=== PATIENT | female | born 1975 | race Hispanic/Latino ===

== ENCOUNTER 2018-07-24 18:08 | Emergency (ER) | payer SELFPAY | END 2018-07-24 19:28 | disposition home or self-care (01) | LOC: EDH 18:08 | DX: B02.9 Zoster without complications (principal); Z90.49 Acquired absence of other specified parts of digestive tract; Z98.890 Other specified postprocedural states; Z72.0 Tobacco use | CPT/HCPCS: 99282 ==

== ENCOUNTER 2018-10-31 14:30 | Emergency (ER) | payer SELFPAY ==
[2018-10-31 14:49] LABS: BASOPHILS % (AUTO) 0.5 % (0.0-5.0); EOSINOPHILS % (AUTO) 0.4 % (0.0-8.0); HEMATOCRIT 38.4 % (36-48); LYMPHOCYTES % (AUTO) 26.9 % (21.0-51.0); MEAN CORPUSCULAR HEMOGLOBIN 28.4 pg (27.0-33.0); MEAN CORPUSCULAR HGB CONC 32.5 g/dL (32.0-36.0); MEAN CORPUSCULAR VOLUME 87.3 fL (79-99); MONOCYTES % (AUTO) 5.6 % (3.0-13.0); NEUTROPHILS % (AUTO) 66.6 % (40.0-77.0); PLATELET COUNT (AUTO) 244 K/uL (130-400); WHITE BLOOD COUNT (AUTO) 8.7 K/uL (4.8-10.8)
[2018-10-31] MEDS ORDERED: SODIUM CHLORIDE 0.9% 1000ML 1,000 ML IV ONE (14:49)
[2018-10-31] MEDS ORDERED: ONDANSETRON HCL 4 MG/2 ML VIAL ONE (14:49)
[2018-10-31] MEDS ORDERED: KETOROLAC TROMETHAMINE 30MG/ML ONE (14:56)
[2018-10-31 15:10] LABS: CREATININE 0.7 mg/dL (0.5-1.5); POTASSIUM 4.3 mmol/L (3.5-5.1)
[2018-10-31 15:15] LABS: ALBUMIN 3.8 g/dL (3.5-5.0); BILIRUBIN,TOTAL 0.4 mg/dL (0.2-1.0); TOTAL PROTEIN, SERUM 8.1 g/dL (6.0-8.3)
[2018-10-31 15:20] LABS: BILIRUBIN,URINE Negative (NEGATIVE); COLOR,URINE Yellow (YELLOW); GLUCOSE, URINE (UA) Negative (NEGATIVE); KETONES,URINE Negative (NEGATIVE); LEUKOCYTE ESTERASE ,URINE Negative (NEGATIVE); NITRATE,URINE Negative (NEGATIVE); OCCULT BLOOD,URINE Negative (NEGATIVE); PROTEIN,URINE Negative (NEGATIVE); UROBILINOGEN,URINE 0.2 mg/dL (0.2-1.0)
[2018-10-31 15:21] LABS: APPEARANCE,URINE Clear (CLEAR)
[2018-10-31 15:23] LABS: HCG,QUAL RESULT NEGATIVE (NEGATIVE)
== END 2018-10-31 16:47 | disposition home or self-care (01) ==
LOC: EDH 14:30
DX: R10.9 Unspecified abdominal pain (principal); R11.0 Nausea; F12.10 Cannabis abuse, uncomplicated; Z90.49 Acquired absence of other specified parts of digestive tract; Z72.0 Tobacco use
CPT/HCPCS: 36415; 74177; 80053; 81003; 81025; 85025; 96361; 96374; 96375; 99284; J1885; J2405; J7030

== ENCOUNTER 2020-12-08 09:01 | Emergency (ER) | payer SELFPAY ==
[2020-12-08] MEDS ORDERED: KETOROLAC TROMETHAMINE 30MG/ML ONE (09:43)
[2020-12-08] MEDS ORDERED: SODIUM CHLORIDE 0.9% 1000ML 1,000 ML IV ONE (09:44)
[2020-12-08 09:46] LABS: BASOPHILS % (AUTO) 0.4 % (0.0-5.0); HEMATOCRIT 40.9 % (36-48); LYMPHOCYTES % (AUTO) 26.9 % (21.0-51.0); MEAN CORPUSCULAR HEMOGLOBIN 28.1 pg (27.0-33.0); MEAN CORPUSCULAR HGB CONC 32.3 g/dL (32.0-36.0); MONOCYTES % (AUTO) 6.6 % (3.0-13.0); NEUTROPHILS % (AUTO) 64.8 % (40.0-77.0); PLATELET COUNT (AUTO) 257 K/uL (130-400); RED CELL DISTRIBUTION WIDTH 14.6 % (11.0-15.5); WHITE BLOOD COUNT (AUTO) 7.3 K/uL (4.8-10.8)
[2020-12-08 09:52] LABS: CREATININE 0.8 mg/dL (0.5-1.5); POTASSIUM 4.3 mmol/L (3.5-5.1)
[2020-12-08 09:55] LABS: APPEARANCE,URINE Clear (CLEAR); BILIRUBIN,URINE Negative (NEGATIVE); COLOR,URINE Yellow (YELLOW); GLUCOSE, URINE (UA) Negative (NEGATIVE); INR 0.99 (0.85-1.15); KETONES,URINE Negative (NEGATIVE); LEUKOCYTE ESTERASE ,URINE Negative (NEGATIVE); NITRATE,URINE Negative (NEGATIVE); OCCULT BLOOD,URINE Moderate (NEGATIVE); PH,URINE 5.5 (5.0-8.0); PROTEIN,URINE Negative (NEGATIVE); PROTHROMBIN TIME 10.8 SEC (9.6-11.6); UROBILINOGEN,URINE 0.2 mg/dL (0.2-1.0)
[2020-12-08 09:56] LABS: PARTIAL THROMBOPLASTIN TIME 29.3 SEC (26.3-35.5)
[2020-12-08 09:57] LABS: ALBUMIN 3.8 g/dL (3.5-5.0); BILIRUBIN,TOTAL 0.3 mg/dL (0.2-1.0); TOTAL PROTEIN, SERUM 8.3 g/dL (6.0-8.3)
[2020-12-08 10:09] LABS: WBC,URINE None Seen /HPF (0-1)
[2020-12-08 10:10] LABS: BACTERIA,URINE Rare /HPF (None Seen)
[2020-12-08] MEDS ORDERED: IOHEXOL-350 75 ML VIAL IV ONE (10:15)
[2020-12-08] MEDS ORDERED: HYDROCODONE/ACETAMINOPHEN 5/325 MG TAB ONE (11:38)
== END 2020-12-08 14:37 | disposition home or self-care (01) ==
LOC: EDH 09:01
DX: R10.30 Lower abdominal pain, unspecified (principal); D25.9 Leiomyoma of uterus, unspecified; K57.30 Diverticulosis of large intestine without perforation or abscess without bleeding; Z90.49 Acquired absence of other specified parts of digestive tract; Z98.890 Other specified postprocedural states; Z72.0 Tobacco use
CPT/HCPCS: 36415; 74177; 80053; 81001; 81025; 83690; 85025; 85610; 85730; 96361; 96374; 99285; J1885; J7030; Q9967

== ENCOUNTER 2024-10-04 12:00 | Emergency (ER) | payer BC ==
[~2024-10-04] VITALS: Ht 144.8 cm; Wt 65.8 kg
--- NOTE | 2024-10-04 12:08 | NUR ---
SEEN BY MINDY LI AT TRIAGE ROOM
[2024-10-04] MEDS: ketOROlac 15MG/ML VIAL (15MG/ML) IV ONE (12:18)
[2024-10-04 12:45] LABS: BASOPHILS # (AUTO) 0.04 K/uL (0.00-0.20); BASOPHILS % (AUTO) 0.4 % (0.0-5.0); EOSINOPHILS # (AUTO) 0.06 K/uL (0.00-0.70); EOSINOPHILS % (AUTO) 0.7 % (0.0-8.0); HEMATOCRIT 43.9 % (36-48); IMMATURE GRANULOCYTE ABSOLUTE 0.02 K/uL (0-1); LYMPHOCYTES # (AUTO) 2.6 K/uL (1.0-4.8); LYMPHOCYTES % (AUTO) 28.4 % (21.0-51.0); MEAN CORPUSCULAR HEMOGLOBIN 29.5 pg (27.0-33.0); MEAN CORPUSCULAR HGB CONC 32.6 g/dL (32.0-36.0); MEAN CORPUSCULAR VOLUME 90.5 fL (79-99); MONOCYTES # (AUTO) 0.7 K/uL (0.1-1.0); MONOCYTES % (AUTO) 7.5 % (3.0-13.0); NEUTROPHILS # (AUTO) 5.7 K/uL (1.8-7.7); NEUTROPHILS % (AUTO) 62.8 % (40.0-77.0); PLATELET COUNT (AUTO) 257 K/uL (130-400); RED BLOOD CELL COUNT(AUTO) 4.85 MIL/uL (4.00-5.50); RED CELL DISTRIBUTION WIDTH 15.1 % (11.0-15.5)
[2024-10-04 12:52] LABS: CREATININE 0.7 mg/dL (0.5-1.0); POTASSIUM 4.2 mmol/L (3.5-5.1)
[2024-10-04 13:01] LABS: APPEARANCE,URINE CLEAR (CLEAR); BILIRUBIN,URINE NEGATIVE (NEGATIVE); COLOR,URINE LIGHT-YELLOW (YELLOW); GLUCOSE, URINE (UA) NEGATIVE (NEGATIVE); KETONES,URINE NEGATIVE (NEGATIVE); LEUKOCYTE ESTERASE ,URINE NEGATIVE Leu/uL (NEGATIVE); NITRATE,URINE NEGATIVE (NEGATIVE); OCCULT BLOOD,URINE LARGE (NEGATIVE); PROTEIN,URINE NEGATIVE (NEGATIVE); UROBILINOGEN,URINE 0.2 mg/dL (0.2-1.0)
[2024-10-04 13:08] LABS: ADD UA MICROSCOPIC YES
[2024-10-04 13:13] LABS: SQUAMOUS EPITHELIAL CELL,UR RARE /HPF (0-2); WBC,URINE 0-1 /HPF (0-1)
--- NOTE | 2024-10-04 14:16 | HMCIMG ---
US PELVIC NON-OB LIMITED HISTORY: Fibroid COMPARISON: None TECHNIQUE: Transabdominal pelvic ultrasound study was performed. FINDINGS: The uterus measures 10 x 4.9 x 5.5 cm. The right ovary measures 2 x 1.3 x 1.7 cm. The left ovary measures 4.2 x 2.5 x 5.2 cm. Flow is seen in both ovaries. There is left ovarian cyst measuring 3.8 x 2.9 x 4.4 cm. There is fibroid at the anterior aspect of the uterus measuring 4 mm. Calcified fibroid is seen at the posterior aspect of the lower uterine segment measuring 2.6 cm. Endometrial thickness is 3 mm. No free fluid is seen in the cul-de-sac. IMPRESSION: 1. No adnexal mass is seen. Suspect fibroid uterus. Left ovarian cyst measuring 3.8 x 2.9 x 4.4 cm
[2024-10-04] MEDS ORDERED: KETO10TA2 PO (14:29)
--- NOTE | 2024-10-04 14:30 | ERN ---
General Chief Complaint: Vaginal Problems/Bleeding Stated Complaint: PELVIC PAIN, FEVER, BLEEDING Time Seen by MD: 12:02 Time Seen by Midlevel: 12:02 Source: patient History of Present Illness Initial Comments Patient is a 49-year-old female with a past medical history of uterine fibroids presenting to the emergency department with pelvic pain and vaginal bleeding that started last night and progressively worsened today. Patient reports a similar episode in the past where she was previously diagnosed with uterine fibroids. She has an appointment scheduled with her OBGYN but is later on this month. Denies being at this time. Denies any concerns for any sexually transmitted disease. Allergies: Coded Allergies: No Known Drug Allergies (Unverified Allergy, Unknown, 10/04/24) Past Medical History Past Medical History: Hypertension Past Surgical History: Cholecystectomy, ROS Dictation CONSTITUTIONAL: Negative except for HPI HEAD/FACE: Negative except for HPI EENT: Negative except for HPI RESPIRATORY: Negative except for HPI GASTROINTESTINAL/ABDOMINAL: Negative except for HPI GENITOURINARY: Negative except for HPI MUSCULOSKELETAL: Negative except for HPI INTEGUMENTARY: Negative except for HPI NEUROLOGICAL/PSYCH: Negative except for HPI HEMATOLOGIC/LYMPHATIC: Negative except for HPI All Systems Negative, Except as noted above. 13 point review of systems assessed and all negative except for above. Physical Exam Physical Exam Dictation Vital Signs reviewed General Appearance: Alert, oriented x 3, no acute distress, well developed, nourished. Head and Face: non-traumatic. Eyes: PERRL, pink conjunctivas, eyelid no trauma, anterior chamber with arcus senilis. Ears: Pinnas intact and no signs of trauma or erythema ear canals clear and no discharge TM no erythema Nose: No discharge, no bleeding. Oropharynx: Mouth normal, tongue pink, pharynx clear,no erythema, tonsils no exudates, no abscesses noted, mucous membrane moist Neck: Supple, non-tender, no thyromegaly, no masses, no JVD, no bruits Breast:Deferred Chest:No tenderness, no crepitus, no paradoxical movement, no retractions Lungs:Clear, well-ventilated, symmetric, no rales, no wheezing, no rhonchi, no stridor, good breath sounds bilaterally Heart: Regular rate, regular rhythm, no murmur, no gallops Vascular: no peripheral edema, Abdomen: Soft, positive bowel sounds, nondistended, no guarding, nontender, no rebound, no masses no hepatomegaly, no splenomegaly, no Cadet's sign, no hernias. Rectal: Deferred Genital: Deferred Neurological: Normal speech, motor function intact, sensory function intact Musculoskeletal: Neck nontender, full range of motion, back nontender, full range of motion, Extremities: nontender, full range of motion Skin: Color pink, dry, no turgor, no rash, no lacerations, no abrasions, no contusions. Lymphatic: Deferred Results Laboratory and Microbiology Lab and Micro Result Laboratory Tests Test 10/04/24 12:15 10/04/24 12:17 White Blood Count 9.0 K/uL (4.8-10.8) Red Blood Count 4.85 MIL/uL (4.00-5.50) Hemoglobin 14.3 g/dL (12.0-16.0) Hematocrit 43.9 % (36-48) Mean Corpuscular Volume 90.5 fL (79-99) Mean Corpuscular Hemoglobin 29.5 pg (27.0-33.0) Mean Corpuscular Hemoglobin Concent 32.6 g/dL (32.0-36.0) Red Cell Distribution Width 15.1 % (11.0-15.5) Platelet Count 257 K/uL (130-400) Mean Platelet Volume 12.1 fL (7.5-10.5) H Immature Granulocyte % (Auto) 0.2 % (0-1) Neutrophils (%) (Auto) 62.8 % (40.0-77.0) Lymphocytes (%) (Auto) 28.4 % (21.0-51.0) Monocytes (%) (Auto) 7.5 % (3.0-13.0) Eosinophils (%) (Auto) 0.7 % (0.0-8.0) Basophils (%) (Auto) 0.4 % (0.0-5.0) Neutrophils # (Auto) 5.7 K/uL (1.8-7.7) Lymphocytes # (Auto) 2.6 K/uL (1.0-4.8) Monocytes # (Auto) 0.7 K/uL (0.1-1.0) Eosinophils # (Auto) 0.06 K/uL (0.00-0.70) Basophils # (Auto) 0.04 K/uL (0.00-0.20) Absolute Immature Granulocyte (auto 0.02 K/uL (0-1) Nucleated Red Blood Cells 0.0 % (0.0-0.19) Sodium Level 139 mmol/L (136-145) Potassium Level 4.2 mmol/L (3.5-5.1) Chloride Level 104 mmol/L (101-111) Carbon Dioxide Level 25 mmol/L (21-32) Blood Urea Nitrogen 10 mg/dL (7-18) Creatinine 0.7 mg/dL (0.5-1.0) Glomerular Filtration Rate Calc 107 mL/min (>90) Random Glucose 88 mg/dL (70-105) Total Calcium 9.3 mg/dL (8.5-10.1) Serum Test, Qualitative NEGATIVE (NEGATIVE) Urine Color LIGHT-YELLOW (YELLOW) Urine Appearance CLEAR (CLEAR) Urine pH 8.0 (5.0-8.0) Urine Specific [place] 1.011 (1.001-1.031) Urine Protein NEGATIVE mg/dL (NEGATIVE) Urine Glucose (UA) NEGATIVE mg/dL (NEGATIVE) Urine Ketones NEGATIVE mg/dL (NEGATIVE) Urine Occult Blood LARGE (NEGATIVE) H Urine Nitrate NEGATIVE (NEGATIVE) Urine Bilirubin NEGATIVE mg/dL (NEGATIVE) Urine Urobilinogen 0.2 mg/dL (0.2-1.0) Urine Leukocyte Esterase NEGATIVE [place]/uL Urine RBC 6-10 /HPF (0-1) H Urine WBC 0-1 /HPF (0-1) Urine Squamous Epithelial Cells RARE /HPF (0-2) Urine Bacteria None /HPF (None Seen) Labs Reviewed?: Yes MDM MDM: Differential diagnosis: Uterine fibroid, , dysfunctional uterine bleeding There are no social concerns with this patient. Prescription drug management Prescriptions will include: Toradol Medical management and examination interpretation discussions were had by me with other qualified healthcare professionals as indicated for the patient's care. ED Course Orders Procedure Category Date Status Time Cbc With Differential LAB 10/04/24 Complete 12:11 Basic Metabolic Panel LAB 10/04/24 Complete 12:11 Urinalysis Profile LAB 10/04/24 Complete 12:11 Testing, LAB 10/04/24 Complete Serum Hcg 12:11 Us Pelvic Non-Ob US 10/04/24 Resulted Limited 12:11 Ketorolac PHA 10/04/24 Complete Tromethamine 15mg/Ml 12:30 Current Medications Medications (Trade) Dose Ordered Sig/[place] Route PRN Reason Start Time Stop Time Status Last Admin Dose Admin Ketorolac Tromethamine (toRADol) 15 mg ONCE ONCE IV 10/04/24 12:30 10/04/24 12:31 DC 10/04/24 12:18 Vital Signs Date Time Temp Pulse Resp B/P (MAP) Pulse Ox O2 Delivery O2 Flow Rate FiO2 10/04/24 12:04 98.2 77 16 130/91 98 Room Air 10/04/24 12:04 98.2 77 16 130/91 98 Room Air* 0 21 [facility] [address] [place] [address] IMAGING REPORT Signed PATIENT: MIKAEL MA MR#: [id number] : 1975 SEX: F AGE: 49 LOCATION: [facility] ORDER 1212 STATUS: REG ER REPORT#: [id number] SERVICE 1211 REASON: r/o fibroids ORDERING PHYSICIAN: MINDY MEEK PROCEDURE: PELVLTD - US PELVIC NON-OB LIMITED US PELVIC NON-OB LIMITED HISTORY: Fibroid COMPARISON: None TECHNIQUE: Transabdominal pelvic ultrasound study was performed. FINDINGS: The uterus measures 10 x 4.9 x 5.5 cm. The right ovary measures 2 x 1.3 x 1.7 cm. The left ovary measures 4.2 x 2.5 x 5.2 cm. Flow is seen in both ovaries. There is left ovarian cyst measuring 3.8 x 2.9 x 4.4 cm. There is fibroid at the anterior aspect of the uterus measuring 4 mm. Calcified fibroid is seen at the posterior aspect of the lower uterine segment measuring 2.6 cm. Endometrial thickness is 3 mm. No free fluid is seen in the cul-de-sac. IMPRESSION: 1. No adnexal mass is seen. Suspect fibroid uterus. Left ovarian cyst measuring 3.8 x 2.9 x 4.4 cm DICTATED BY: RACHEL RUGGIERO MD DATE: 10/04/24 141 ELECTRONICALLY SIGNED BY: RACHEL RUGGIERO MD DATE: 10/04/24 141 DX & DISP Disposition: Discharge Departure Impression: Primary Impression: Fibroid uterus Condition: Stable Scripts Ketorolac Tromethamine (Ketorolac Tromethamine) 10 Mg Tablet 1 TAB PO TID for pain for 5 Days, #15 TAB 0 Refills Prov: MINDY MEEK 10/04/24 Additional Instructions: Your blood work today is unremarkable. Your urine assist does not show any evidence of infection. Your pelvic ultrasound shows a suspect fibroid uterus. There was no evidence of an ovarian torsion. You will need to see an psych specialist for outpatient evaluation. Return to the ER if you develop any new or worsening symptoms. Referrals: SELF,REFERRAL (PCP) Time of Disposition: 14:28 I have reviewed the case, and I agree with, Diagnosis and Plan I performed the substantive portion of the visit. I have reviewed and personally made and approve the management plan that is documented in the note by myself or the [facility]. I acknowledge for responsibility for the patient's management plan. MINDY MEEK Oct 04, 2024 14:30
[2024-10-04 14:36] VITALS: BP 124/80; PULSE 72; RESP 16; TEMP 98.3; O2SAT 98
== END 2024-10-04 14:43 | disposition home or self-care (01) ==
LOC: EDH 12:00
DX: D25.9 Leiomyoma of uterus, unspecified (principal); N83.202 Unspecified ovarian cyst, left side; I10 Essential (primary) hypertension; Z90.49 Acquired absence of other specified parts of digestive tract; Z98.890 Other specified postprocedural states
CPT/HCPCS: 99284; 96374; 76857; 80048; 84703; 85025; 81001; 36415; J1885